=== PATIENT | female | born 1990 | race Caucasian/White ===

== ENCOUNTER → 2017-12-01 | Outpatient (CLI) | payer OTHER ==
[~2017-12-01] MED LIST: Amoxicillin875 MG PO; Antivert25 MG PO; Augmentin 500-1 EACH PO; BIRTH CONTROL PATCH TOP; CLON.5 PO; ESCI10 PO; LEVSOD100 PO; Lexapro 10 mg T10 MG PO; NEOPOLHCSU RIGHTEAR; Prozac20 MG PO; Synthroid100 MCG PO; Ultram50 MG PO; Zofran Odt4 MG SL
[2017-12-10 09:56] LABS: CHLAMYDIA BY NAA Negative (Negative); GONOCOCCUS BY NAA Negative (Negative); TRICH VAG BY NAA Negative (Negative)
== END | disposition home or self-care (01) ==
LOC: LAB SHORT 15:19 → LAB 15:19
PROVIDERS: Obstetrics & Gynecology
DX: Z36.89 Encounter for other specified antenatal screening (principal)
CPT/HCPCS: 87491; 87591; 87661; G0123

== ENCOUNTER 2018-06-05 09:48 | Inpatient (IN) | payer OTHER ==
[~2018-06-05] VITALS: Ht 165.1 cm; Wt 92.0 kg
[2018-06-05] MEDS ORDERED: EXPECTA PRENAT1 EACH (11:32)
[2018-06-05 12:36] LABS: BASOPHILS ABSOLUTE AUTO 0.04 K/mm3 (0.00-0.23); BASOPHILS PERCENT AUTO 0 % (0-2); EOSINOPHILS ABSOLUTE AUTO 0.03 K/mm3 (0.00-0.68); EOSINOPHILS PERCENT AUTO 0 % (0-6); Hematocrit 39.3 % (33.0-51.0); Hemoglobin 13.3 g/dL (11.5-16.0); IMMATURE GRAN ABSOLUTE AUTO 0.12 K/mm3 (0.00-0.10); IMMATURE GRAN PERCENT AUTO 1 % (0-1); LYMPHOCYTES ABSOLUTE AUTO 2.21 K/mm3 (0.84-5.20); LYMPHOCYTES PERCENT AUTO 13 % (21-46); MONOCYTES ABSOLUTE AUTO 0.59 K/mm3 (0.16-1.47); MONOCYTES PERCENT AUTO 4 % (4-13); Mean Corpuscular HGB 31.4 pg (26.0-34.0); Mean Corpuscular HGB Conc 33.8 g/dL (31.5-36.5); Mean Corpuscular Volume 93 fL (80-100); Mean Platelet Volume 11.1 fL (9.1-12.4); NEUTROPHILS ABSOLUTE AUTO 14.04 K/mm3 (1.96-9.15); NEUTROPHILS PERCENT AUTO 82 % (41-73); Platelet Count 276 K/mm3 (150-400); RDW Coefficient Variation 13.3 % (11.7-14.2); RDW Standard Deviation 45.1 fL (35.1-46.3); Red Blood Cell Count 4.24 M/mm3 (3.80-5.20); White Blood Cell Count 17.03 K/mm3 (4.00-11.30)
--- NOTE | 2018-06-05 21:02 | NUR ---
06/05/182044: RT ON STAND BY FOR DUE TO INTOL TO LABOR. ALL EQUIPMENT AT [facility] WAS CHECKED AND FUNCTIONING PROPERLY BEFORE PROCEDURE. BABY WAS BORN AT 2050, LIGHT MEC NOTED IN FLUID. BABY HAS GOOD, STONG INITIAL CRY AND COUGH. BABY WAS BROUGHT TO WARMER AND WAS DRIED AND STIMULATED AND EVALUATED FURTHER. BABY FOUND TO HAS STRONG CRY, GOOD TONE, GOOD RESP EFFORT, HR 158 PER RN. BS ARE WET T/O, MILD ACROCYNOSIS NOTED ON PALMS OF HANDS AND FEET, BUT GOOD COLOR OTHERWISE. APGARS ARE 8/9. NO RESP INTERVENTIONS REQUIRED, RT WAS EXCUSED BY RN AND BABY TRASNITIONING WELL. RT PRESENT: JASIEL, CARTOONIST SPECIAL EFFECTS
--- NOTE | 2018-06-05 21:03 | NUR ---
06/05/182102 Roseann Sharif VILLANUEVA CATH IN PLACE UPON ARRIVAL TO OR. EPIDURAL CATH IN PLACE UPON ARRIVAL TO OR. BABY BOY BORN 2052 FIRST AND SECOND SCORES 8-9. CORD BLOOD SENT WITH MER PRESLEY RN. NO CORD SEGMENT SENT ORDERED BY DR BRAGA.
[2018-06-06 05:31] LABS: Mean Corpuscular HGB Conc 33.3 g/dL (31.5-36.5); Mean Corpuscular Volume 93 fL (80-100); Mean Platelet Volume 11.1 fL (9.1-12.4); Platelet Count 243 K/mm3 (150-400); RDW Coefficient Variation 13.2 % (11.7-14.2); RDW Standard Deviation 45.1 fL (35.1-46.3); Red Blood Cell Count 3.23 M/mm3 (3.80-5.20); White Blood Cell Count 22.28 K/mm3 (4.00-11.30)
[2018-06-07] MEDS ORDERED: IBUP800 PO (08:45)
[2018-06-07] MEDS ORDERED: Percocet 5-3251 EACH PO (08:46)
--- NOTE | 2018-06-07 11:15 | NUR ---
DISCHARGE- DISCHARGED HOME STABLE WITH FOB. NO QUESTIONS OR CONCERNS. VERBALIZES UNDERSTANDING OF DISCHARGE INSTRUCTIONS AND FOLLOW UP APPOINTMENTS. MMR GIVEN AT DISCHARGE.AMBULATES TO CAR INDEPENDANTLY.
== END 2018-06-07 11:06 | disposition home or self-care (01) | DRG 788 ==
LOC: OBS 09:48 → BC 09:50 → OBS 11:08 → BC 11:10
PROVIDERS: Advanced Practice Midwife; ADMIT Obstetrics & Gynecology
PROC: 10H00YZ Insertion of Other Device into Products of Conception, Open Approach (ICD-10-PCS; 2018-06-05)
PROC: 0UN50ZZ Release Right Fallopian Tube, Open Approach (ICD-10-PCS; 2018-06-05)
PROC: 0UN70ZZ Release Bilateral Fallopian Tubes, Open Approach (ICD-10-PCS; 2018-06-05)
PROC: 10907ZC Drainage of Amniotic Fluid, Therapeutic from Products of Conception, Via Natural or Artificial Opening (ICD-10-PCS; 2018-06-05)
PROC: 4A1H7CZ Monitoring of Products of Conception, Cardiac Rate, Via Natural or Artificial Opening (ICD-10-PCS; 2018-06-05)
PROC: 3E0E7GC Introduction of Other Therapeutic Substance into Products of Conception, Via Natural or Artificial Opening (ICD-10-PCS; 2018-06-05)
PROC: 00HU33Z Insertion of Infusion Device into Spinal Canal, Percutaneous Approach (ICD-10-PCS; 2018-06-05)
PROC: 3E0R3BZ Introduction of Anesthetic Agent into Spinal Canal, Percutaneous Approach (ICD-10-PCS; 2018-06-05)
PROC: 10D00Z1 Extraction of Products of Conception, Low, Open Approach (ICD-10-PCS; principal; 2018-06-05 20:00)
DX: O34.211 Maternal care for low transverse scar from previous cesarean delivery (principal); N85.8 Other specified noninflammatory disorders of uterus; O99.284 Endocrine, nutritional and metabolic diseases complicating childbirth; E89.0 Postprocedural hypothyroidism; O99.344 Other mental disorders complicating childbirth; F32.9 Major depressive disorder, single episode, unspecified; O76 Abnormality in fetal heart rate and rhythm complicating labor and delivery; O77.0 Labor and delivery complicated by meconium in amniotic fluid; N73.6 Female pelvic peritoneal adhesions (postinfective); F11.11 Opioid abuse, in remission; Z3A.40 40 weeks gestation of pregnancy; Z37.0 Single live birth; Z79.899 Other long term (current) drug therapy; Z88.1 Allergy status to other antibiotic agents; Z87.891 Personal history of nicotine dependence
CPT/HCPCS: 36415; 51702; 59025; 59070; 85025; 85027; 86850; 86900; 86901; 90471; 90707; 99213; J0690; J1885; J2001; J2274; J2370; J2405; J2590; J2765; J7030; J7120

== ENCOUNTER → 2022-12-04 | Outpatient (CLI) | payer OTHER ==
[~2022-12-04] MED LIST changes: +EXPECTA PRENAT1 EACH; +IBUP800 PO; +Percocet 5-3251 EACH PO
== END ==
LOC: LAB SHORT 19:15 → LAB 19:15
DX: N39.0 Urinary tract infection, site not specified (principal)
CPT/HCPCS: 87077; 87086; 87186